=== PATIENT | male | born 1940 | race Two or more races ===

== ENCOUNTER 2017-04-17 05:49 | Emergency (ER) | payer MEDICARE, MEDICAID ==
[~2017-04-17] VITALS: Ht 167.6 cm; Wt 68.0 kg
[~2017-04-17 05:49] MED LIST: ALLO300T2 PO; BENA40TA7 PO; MULTCAP45 PO; NIFE30TA70 PO; TRAM50TA2 PO
[2017-04-17 07:26] LABS: Urine Bacteria NONE SEEN /hpf (None Seen); Urine Blood Negative /uL (Negative); Urine Hyaline Cast FEW /lpf (0 - 2); Urine Specific Gravity 1.025 (1.001-1.035); Urine WBC 1 /hpf (0 - 3)
[2017-04-17 07:40] LABS: Basophils # (auto) 0.1 uL; Basophils % (auto) 0.9 % (0.0-2.0); Eosinophils # (auto) 0.3 uL; Eosinophils % (auto) 4.5 % (0.0-7.0); Hematocrit 35.1 % (41.0-53.0); Hemoglobin 11.6 g/dL (13.5-17.5); Lymphocytes # (auto) 2.4 uL; Lymphocytes % (auto) 39.9 % (10.0-50.0); Mean Corpuscular Hemoglobin 32.4 pg (28.0-32.0); Mean Corpuscular Hgb Conc. 33.1 g/dL (32.0-36.0); Mean Corpuscular Volume 97.7 fL (80.0-100.0); Monocytes # (auto) 0.8 uL; Monocytes % (auto) 12.7 % (0.0-12.0); Neutrophils # (auto) 2.5 uL; Nucleated Red Blood Cells % 0.1 %; Platelet Count (auto) 238 10^3/uL (140-450); Red Blood Cells 3.59 10^6/uL (4.5-5.90)
[2017-04-17 07:44] LABS: Albumin 3.1 g/dL (3.4-5.0); BUN/Creatinine Ratio 31.5; Calcium 9.5 mg/dL (8.5-10.1); Potassium 3.9 mmol/L (3.5-5.1)
[2017-04-17 07:52] LABS: Bilirubin, Total 0.5 mg/dL (0.2-1.0); Total Protein 8.3 g/dL (6.4-8.2)
[2017-04-17 08:57] LABS: INR 0.96 (0.9-1.15); Prothrombin Time 10.5 sec (9.37-12.3)
[2017-04-17] MEDS ORDERED: NALBUPHINE HCL 10 MG/1ml INJECTION IV ONE (09:00)
[2017-04-17 09:04] LABS: Alcohol, Urine < 3.0 mg/dL (0-5); Amphetamine Screen, Urine NEGATIVE (NEGATIVE); Barbiturate Scree,Urine NEGATIVE (NEGATIVE); Benzodiazephine Screen, Urine NEGATIVE (NEGATIVE); Cannabinoid Screen, Urine NEGATIVE (NEGATIVE); Cocaine Screen, Urine NEGATIVE (NEGATIVE); Opiate Scree,Urine POSITIVE (NEGATIVE); Phencyclidine Screen, Urine NEGATIVE (NEGATIVE)
[2017-04-17] MEDS ORDERED: HYDR-531 PO (09:27)
[2017-04-17] MEDS ORDERED: HYD2I PO (09:27)
[2017-04-17] MEDS ORDERED: MELO1TAB73 PO (09:27)
[2017-04-17] MEDS ORDERED: LACT10SO3 PO (09:27)
[2017-04-17] MEDS ORDERED: METO25TA5 PO (09:27)
[2017-04-17] MEDS ORDERED: MET50T PO (09:27)
[2017-04-17] MEDS ORDERED: CLOP75TA41 PO (09:27)
[2017-04-17] MEDS ORDERED: DEXTLIQ70 PO (09:27)
[2017-04-17] MEDS ORDERED: ATOR20TA50 PO (09:27)
[2017-04-17] MEDS ORDERED: IPRIH INH (09:27)
[2017-04-17 14:23] VITALS: BP 118/60
== END 2017-04-17 14:56 | disposition swing bed (61) ==
LOC: EDBD 05:49 → ER 05:51
DX: S72.091A Other fracture of head and neck of right femur, initial encounter for closed fracture (principal); G89.4 Chronic pain syndrome; I10 Essential (primary) hypertension; F17.210 Nicotine dependence, cigarettes, uncomplicated; W19.XXXA Unspecified fall, initial encounter; Y93.89 Activity, other specified; Y99.8 Other external cause status; Y92.89 Other specified places as the place of occurrence of the external cause
CPT/HCPCS: 36415; 72125; 73502; 73700; 80053; 80307; 81001; 83880; 84484; 85025; 85610; 93005; 96374; 99285; J2300

== ENCOUNTER 2017-04-30 17:03 | Emergency (ER) | payer MEDICARE, MEDICAID ==
[~2017-04-30] VITALS: Ht 180.3 cm; Wt 77.1 kg
[~2017-04-30 17:03] MED LIST changes: +ATOR20TA50 PO; +CLOP75TA41 PO; +DEXTLIQ70 PO; +HYD2I PO; +HYDR-531 PO; +IPRIH INH; +LACT10SO3 PO; +MELO1TAB73 PO; +MET50T PO; +METO25TA5 PO
[2017-04-30 17:13] VITALS: BP 168/76
== END 2017-04-30 17:26 | disposition left against medical advice (07) ==
LOC: EDBD 17:03 → ER 17:03
DX: M25.551 Pain in right hip (principal); Z53.21 Procedure and treatment not carried out due to patient leaving prior to being seen by health care provider

== ENCOUNTER 2017-11-11 04:56 | Inpatient (IN) | payer MEDICARE, OTHER ==
[~2017-11-11] VITALS: Ht 165.1 cm; Wt 59.5 kg
[~2017-11-11 04:56] MED LIST changes: -ALLO300T2 PO; -ATOR20TA50 PO; -BENA40TA7 PO; -CLOP75TA41 PO; -DEXTLIQ70 PO; -HYD2I PO; -IPRIH INH; -LACT10SO3 PO; -MELO1TAB73 PO; -MET50T PO; -METO25TA5 PO; -MULTCAP45 PO; -NIFE30TA70 PO; -TRAM50TA2 PO
[2017-11-11 05:30] LABS: Urine WBC None Seen /hpf (0 - 3)
[2017-11-11 05:54] LABS: Urine Bacteria NONE SEEN /hpf (None Seen); Urine Blood Negative /uL (Negative); Urine Specific Gravity 1.011 (1.001-1.035)
[2017-11-11 07:20] LABS: Basophils # (auto) 0 uL; Basophils % (auto) 0.4 % (0.0-2.0); Eosinophils # (auto) 0.2 uL; Eosinophils % (auto) 3.5 % (0.0-7.0); Hematocrit 36.7 % (41.0-53.0); Hemoglobin 12.6 g/dL (13.5-17.5); Lymphocytes # (auto) 2.6 uL; Lymphocytes % (auto) 41.4 % (10.0-50.0); Mean Corpuscular Hemoglobin 33.1 pg (28.0-32.0); Mean Corpuscular Hgb Conc. 34.3 g/dL (32.0-36.0); Mean Corpuscular Volume 96.5 fL (80.0-100.0); Monocytes # (auto) 0.6 uL; Monocytes % (auto) 9.8 % (0.0-12.0); Neutrophils # (auto) 2.8 uL; Neutrophils % (auto) 44.9 % (37.0-80.0); Nucleated Red Blood Cells % 0.1 %; Platelet Count (auto) 217 10^3/uL (140-450); Red Cell Distribution Width 14.5 % (11.8-14.3); White Blood Cell 6.3 10^3/uL (4.4-10.8)
[2017-11-11 07:39] LABS: INR 0.93 (0.9-1.15); Partial Thromboplastin Time 23.8 sec (23.78-33.04)
[2017-11-11] MEDS ORDERED: ONDANSETRON HCL 4 MG/2 ML VIAL IV ONE (08:00)
[2017-11-11] MEDS ORDERED: MORPHINE SULF INJ 2 MG/ML SYRINGE 1ML IV ONE (08:00)
[2017-11-11 08:11] LABS: Alanine Aminotransferase 34 U/L (16-61)
[2017-11-11 08:12] LABS: Anion Gap 3 (5-15); BUN/Creatinine Ratio 16.6; Blood Urea Nitrogen 25 mg/dL (7-18); Carbon Dioxide 24 mmol/L (21-32); Chloride 106 mmol/L (98-107); GFR African American 58 mL/min; GFR Non-African American 48 mL/min; Glucose 93 mg/dL (74-106); Potassium 4.9 mmol/L (3.5-5.1); Sodium 133 mmol/L (136-145)
[2017-11-11 08:13] LABS: Albumin 3.5 g/dL (3.4-5.0); Alkaline Phosphatase 91 U/L (45-117); Aspartate Aminotransferase 30 U/L (15-37); Bilirubin, Total 0.2 mg/dL (0.2-1.0); Calcium 8.7 mg/dL (8.5-10.1); Total Protein 8.6 g/dL (6.4-8.2)
[2017-11-11] MEDS ORDERED: ACETAMINOPHEN 500 MG TAB PO ONE (09:00)
[2017-11-11] MEDS ORDERED: ZOLPIDEM TARTRATE 5 MG TAB PO PRN (10:15)
[2017-11-11] MEDS ORDERED: ACETAMINOPHEN 325 MG TAB PO PRN (10:15)
[2017-11-11] MEDS ORDERED: SULFAMETHOX W/TRIMETH(800/160MG) DS TAB PO ONE (10:15)
[2017-11-11] MEDS ORDERED: MORPHINE SULF INJ 2 MG/ML SYRINGE 1ML IV PRN (10:15)
[2017-11-11] MEDS ORDERED: NITROGLYCERIN 0.4 MG SL TAB SL PRN ×2 (10:15)
[2017-11-11] MEDS ORDERED: DEXTROSE (50%) 50ML SYRG IV PRN (10:15)
[2017-11-11] MEDS ORDERED: MORPHINE SULFATE 4 MG/ML SYR/VIAL IV PRN (10:15)
[2017-11-11] MEDS ORDERED: ALUM & MAG HYDROX-SIMETH LIQ(MAALOX) 30 ML PO ONE (10:15)
[2017-11-11] MEDS ORDERED: ONDANSETRON HCL 4 MG/2 ML VIAL IV PRN (10:15)
[2017-11-11] MEDS ORDERED: cloNIDine HCL 0.1 MG TAB PO PRN (10:15)
[2017-11-11] MEDS ORDERED: LORazepam 0.5 MG TAB PO PRN (10:15)
[2017-11-11] MEDS ORDERED: fentaNYL 25MCG/HR 25 MCG/HR PAT TD SCH (10:30)
[2017-11-11] MEDS ORDERED: CARVEDILOL 3.125 MG TAB PO ONE (10:45)
[2017-11-11] MEDS ORDERED: CLOPIDOGREL BISULFATE 75 MG TAB PO ONE (10:45)
[2017-11-11] MEDS: ASPirin 81 mg TAB PO SCH (11:09)
[2017-11-11] MEDS: ENALAPRIL MALEATE 2.5 MG TAB PO SCH ×2 (11:09→22:05)
[2017-11-11] MEDS: ACCU-CHEK COMFORT CURVE STRIP VI SCH ×3 (11:15→22:06)
[2017-11-11] MEDS: InsuLIN REG 1unit/0.01ml Soln (100units/ml) SC SCH ×3 (11:17→22:00)
[2017-11-11] MEDS ORDERED: OXY5T PO (14:01)
[2017-11-11] MEDS: SODIUM CHLOR 0.9% PF (SALINE LOCK) 10ML VIAL/SYR IV SCH ×2 (14:01→22:04)
[2017-11-11 16:00] VITALS: BP 105/57
[2017-11-11] MEDS: HYDROcodone-ACET 10/325MG TAB PO PRN ×2 (16:34→22:36)
[2017-11-11] MEDS ORDERED: MELO1TAB56 PO (18:27)
[2017-11-11] MEDS ORDERED: LORA-654 PO (18:27)
[2017-11-11] MEDS ORDERED: AMLO5TAB13 PO (18:27)
[2017-11-11] MEDS ORDERED: CLON0.1T PO (18:27)
[2017-11-11] MEDS ORDERED: NITR0.4S29 SL (18:27)
[2017-11-11] MEDS ORDERED: FENT25DI2 TD (18:27)
[2017-11-11] MEDS ORDERED: CLOP75TA41 PO (18:27)
[2017-11-11] MEDS: CARVEDILOL 3.125 MG TAB PO SCH (22:00)
[2017-11-11] MEDS: SULFAMETHOX W/TRIMETH(800/160MG) DS TAB PO SCH (22:04)
[2017-11-11] MEDS: ATORVASTATIN 20 MG TAB PO SCH (22:05)
[2017-11-11 22:27] VITALS: BP 113/59
[2017-11-12] MEDS: HYDROcodone-ACET 10/325MG TAB PO PRN ×3 (04:40→19:45)
[2017-11-12 05:01] VITALS: BP 87/53
[2017-11-12] MEDS: SODIUM CHLOR 0.9% PF (SALINE LOCK) 10ML VIAL/SYR IV SCH ×3 (06:54→22:09)
[2017-11-12] MEDS: ACCU-CHEK COMFORT CURVE STRIP VI SCH ×4 (06:54→22:10)
[2017-11-12] MEDS: InsuLIN REG 1unit/0.01ml Soln (100units/ml) SC SCH ×4 (06:55→22:00)
[2017-11-12 07:07] LABS: Basophils # (auto) 0 uL; Basophils % (auto) 0.6 % (0.0-2.0); Eosinophils # (auto) 0.2 uL; Eosinophils % (auto) 3.8 % (0.0-7.0); Hematocrit 38.9 % (41.0-53.0); Lymphocytes # (auto) 2.6 uL; Lymphocytes % (auto) 40.5 % (10.0-50.0); Mean Corpuscular Hemoglobin 32.6 pg (28.0-32.0); Mean Corpuscular Hgb Conc. 33.6 g/dL (32.0-36.0); Mean Corpuscular Volume 97.1 fL (80.0-100.0); Monocytes # (auto) 0.7 uL; Monocytes % (auto) 10.4 % (0.0-12.0); Neutrophils # (auto) 2.8 uL; Neutrophils % (auto) 44.7 % (37.0-80.0); Platelet Count (auto) 205 10^3/uL (140-450); Red Cell Distribution Width 14.7 % (11.8-14.3); White Blood Cell 6.3 10^3/uL (4.4-10.8)
[2017-11-12 07:38] LABS: Albumin 3.6 g/dL (3.4-5.0); BUN/Creatinine Ratio 13.5; Bilirubin, Total 0.3 mg/dL (0.2-1.0); Calcium 8.9 mg/dL (8.5-10.1); Magnesium 2.8 mg/dL (1.6-2.6); Potassium 4.8 mmol/L (3.5-5.1); Total Protein 8.7 g/dL (6.4-8.2)
[2017-11-12 08:00] VITALS: BP 100/60
[2017-11-12] MEDS: ENALAPRIL MALEATE 2.5 MG TAB PO SCH ×2 (10:00→22:00)
[2017-11-12] MEDS: CARVEDILOL 3.125 MG TAB PO SCH ×2 (10:00→22:00)
[2017-11-12] MEDS ORDERED: amLODIPine BESYLATE 5 MG TAB PO SCH (10:00)
[2017-11-12] MEDS: ASPirin 81 mg TAB PO SCH (10:44)
[2017-11-12] MEDS: DOCUSATE SOD 100 MG CAP PO SCH (10:44)
[2017-11-12] MEDS: SULFAMETHOX W/TRIMETH(800/160MG) DS TAB PO SCH ×2 (10:44→22:09)
[2017-11-12] MEDS: CLOPIDOGREL BISULFATE 75 MG TAB PO SCH (10:44)
[2017-11-12 12:00] VITALS: BP 146/75
[2017-11-12 16:00] VITALS: BP 91/57
[2017-11-12] MEDS ORDERED: SULF400T11 PO (18:16)
[2017-11-12 22:00] VITALS: BP 106/43
[2017-11-12] MEDS: ATORVASTATIN 20 MG TAB PO SCH (22:09)
[2017-11-13] MEDS: HYDROcodone-ACET 10/325MG TAB PO PRN ×2 (01:58→08:13)
[2017-11-13 05:24] VITALS: BP 104/53
[2017-11-13] MEDS: SODIUM CHLOR 0.9% PF (SALINE LOCK) 10ML VIAL/SYR IV SCH (06:25)
[2017-11-13] MEDS: ACCU-CHEK COMFORT CURVE STRIP VI SCH (06:25)
[2017-11-13] MEDS: InsuLIN REG 1unit/0.01ml Soln (100units/ml) SC SCH (06:25)
[2017-11-13] MEDS: SULFAMETHOX W/TRIMETH(800/160MG) DS TAB PO SCH (08:16)
[2017-11-13] MEDS: ASPirin 81 mg TAB PO SCH (08:16)
[2017-11-13] MEDS: CLOPIDOGREL BISULFATE 75 MG TAB PO SCH (08:16)
[2017-11-13] MEDS: DOCUSATE SOD 100 MG CAP PO SCH (08:16)
[2017-11-13 08:55] VITALS: BP 102/58
[2017-11-13] MEDS: CARVEDILOL 3.125 MG TAB PO SCH (10:00)
[2017-11-13] MEDS: ENALAPRIL MALEATE 2.5 MG TAB PO SCH (10:00)
[2017-11-13 12:16] VITALS: BP 110/59
== END 2017-11-13 13:04 | disposition home or self-care (01) | DRG 291 ==
LOC: EDBD 04:56 → ER 05:01 → TELE 05:02 → TELE-CENTR 12:54
PROVIDERS: ADMIT Internal Medicine; ATTEND Family Medicine
DX: I13.0 Hypertensive heart and chronic kidney disease with heart failure and stage 1 through stage 4 chronic kidney disease, or unspecified chronic kidney disease (principal); I50.43 Acute on chronic combined systolic (congestive) and diastolic (congestive) heart failure; E87.1 Hypo-osmolality and hyponatremia; R64 Cachexia; I25.10 Atherosclerotic heart disease of native coronary artery without angina pectoris; N18.3 Chronic kidney disease, stage 3 (moderate); E83.41 Hypermagnesemia; D63.8 Anemia in other chronic diseases classified elsewhere; E11.22 Type 2 diabetes mellitus with diabetic chronic kidney disease; E78.00 Pure hypercholesterolemia, unspecified; E78.5 Hyperlipidemia, unspecified; F10.10 Alcohol abuse, uncomplicated; I25.2 Old myocardial infarction; F17.210 Nicotine dependence, cigarettes, uncomplicated; Z81.8 Family history of other mental and behavioral disorders; Z82.49 Family history of ischemic heart disease and other diseases of the circulatory system; Z83.3 Family history of diabetes mellitus; Z82.61 Family history of arthritis; Z95.1 Presence of aortocoronary bypass graft; R00.1 Bradycardia, unspecified; Z68.21 Body mass index [BMI] 21.0-21.9, adult; Z95.5 Presence of coronary angioplasty implant and graft
CPT/HCPCS: 36415; 71045; 80053; 80061; 81001; 82962; 83036; 83735; 83880; 84443; 84484; 85025; 85610; 85730; 87081; 93005; 96374; 96375; J2405

== ENCOUNTER → 2017-11-28 | Outpatient (CLI) | payer MEDICARE, OTHER ==
[~2017-11-28] VITALS: Ht 180.3 cm; Wt 64.9 kg
[~2017-11-28] MED LIST changes: +ADENOSINE 54 MG in GIVE UN-DILUTED 0 ML IV ONE; +ADENOSINE 90 MG/30 ML INJ IV ONE; +AMLO5TAB13 PO; +CLON0.1T PO; +CLOP75TA41 PO; +FENT25DI2 TD; +LORA-654 PO; +MELO1TAB56 PO; +NITR0.4S29 SL; +SULF400T11 PO
== END | disposition home or self-care (01) ==
LOC: Rad HDHVI 10:05
PROVIDERS: ATTEND Internal Medicine Cardiovascular Disease
DX: Z01.810 Encounter for preprocedural cardiovascular examination (principal); I10 Essential (primary) hypertension; E78.00 Pure hypercholesterolemia, unspecified; I20.9 Angina pectoris, unspecified
CPT/HCPCS: 78452; 93005; 96374; 96375; A9500; J0153

== ENCOUNTER 2018-07-07 00:59 | Inpatient (IN) | payer MEDICARE, OTHER ==
[2018-07-07] VITALS (7 sets, daily range): BP systolic 95–122; BP diastolic 53–72
[~2018-07-07] VITALS: Ht 180.3 cm; Wt 127.7 kg
[~2018-07-07 00:59] MED LIST changes: -ADENOSINE 54 MG in GIVE UN-DILUTED 0 ML IV ONE; -ADENOSINE 90 MG/30 ML INJ IV ONE
[2018-07-07] MEDS ORDERED: SODIUM CHLORIDE 0.9% 1,000 ML IVB ONE (01:07)
[2018-07-07 01:50] LABS: Basophils # (auto) 0 uL; Basophils % (auto) 0.3 % (0.0-2.0); Eosinophils # (auto) 0 uL; Eosinophils % (auto) 0.4 % (0.0-7.0); Hematocrit 39.9 % (41.0-53.0); Hemoglobin 13.2 g/dL (13.5-17.5); Lymphocytes # (auto) 2.1 uL; Lymphocytes % (auto) 28.4 % (10.0-50.0); Mean Corpuscular Hemoglobin 31.9 pg (28.0-32.0); Mean Corpuscular Volume 96.6 fL (80.0-100.0); Monocytes # (auto) 0.4 uL; Monocytes % (auto) 5.1 % (0.0-12.0); Neutrophils # (auto) 4.9 uL; Neutrophils % (auto) 65.8 % (37.0-80.0); Nucleated Red Blood Cells % 0.1 %; Platelet Count (auto) 241 10^3/uL (140-450); Red Blood Cells 4.13 10^6/uL (4.5-5.90); Red Cell Distribution Width 14.6 % (11.8-14.3); White Blood Cell 7.5 10^3/uL (4.4-10.8)
[2018-07-07 01:59] LABS: Urine Bacteria FEW /hpf (None Seen); Urine Blood 1+ /uL (Negative); Urine Hyaline Cast FEW /lpf (0 - 2); Urine Specific Gravity 1.009 (1.001-1.035); Urine WBC 1 /hpf (0 - 3)
[2018-07-07 02:07] LABS: Albumin 3.1 g/dL (3.4-5.0); BUN/Creatinine Ratio 10.6; Calcium 9.2 mg/dL (8.5-10.1)
[2018-07-07 02:10] LABS: Potassium 2.5 mmol/L (3.5-5.1)
[2018-07-07 02:12] LABS: Bilirubin, Total 0.2 mg/dL (0.2-1.0); Total Protein 8.1 g/dL (6.4-8.2)
[2018-07-07] MEDS: POTASSIUM CHL 20MEQ/100ML 100 ML IV SCH ×3 (02:39→06:34)
[2018-07-07] MEDS ORDERED: ACETAMINOPHEN 500 MG TAB PO PRN (07:15)
[2018-07-07] MEDS ORDERED: cloNIDine HCL 0.1 MG TAB PO PRN (07:15)
[2018-07-07] MEDS ORDERED: LORazepam 0.5 MG TAB PO PRN ×2 (07:15→15:30)
[2018-07-07] MEDS ORDERED: ONDANSETRON HCL 4 MG/2 ML VIAL IV PRN (07:15)
--- NOTE | 2018-07-07 09:49 | NUR ---
MS admit from ER DILIP WANG admitted to Med-Surg after SBAR received. Patient is alert, oriented x2, name and place. Patient oriented to JABARI Sims RN, unit, room, bed, and unit policies regarding patient care and visiting hours. Patient weighed by bed scale and encouraged to call if they need something. Bed alarm turned on. All questions and concerns addressed, patient verbalized understanding.
[2018-07-07] MEDS: amLODIPine BESYLATE 5 MG TAB PO SCH (10:00)
--- NOTE | 2018-07-07 10:00 | NUR ---
Med-Rec Tried to do medication reconciliation but patient stated he can't remember the medicines he takes at home. He cannot also remember any number that we can call to clarify for home medications.
[2018-07-07] MEDS: PANTOPRAZOLE 40 MG TAB PO SCH (10:34)
[2018-07-07] MEDS: FOLIC ACID 1 MG TAB PO SCH (10:34)
[2018-07-07] MEDS: THIAMINE 100mg/ml INJ (200mg/2ml VIAL) IV SCH (10:34)
[2018-07-07] MEDS: MULTIPLE VITAMIN TAB PO SCH (10:34)
[2018-07-07] MEDS: HYDROcodone-ACET 5/325MG TAB PO PRN ×2 (11:13→15:21)
[2018-07-07] MEDS ORDERED: chlordiazePOXIDE HCL 25 MG CAP PO PRN (15:30)
[2018-07-07] MEDS ORDERED: POTASSIUM CHL 20 Meq TABLET PO ONE (15:30)
[2018-07-07] MEDS: CLOPIDOGREL BISULFATE 75 MG TAB PO SCH (16:36)
--- NOTE | 2018-07-07 16:40 | NUR ---
Urine sample for drug screen sent to the lab.
--- NOTE | 2018-07-07 16:45 | NUR ---
Paged Dr. Putnam, reported patient is asking for Pepto Bismol medication for upset stomach. MD gave an order. Will carry out order.
[2018-07-07 17:42] LABS: Amphetamine Screen, Urine NEGATIVE (NEGATIVE); Barbiturate Scree,Urine NEGATIVE (NEGATIVE); Benzodiazephine Screen, Urine NEGATIVE (NEGATIVE); Cannabinoid Screen, Urine NEGATIVE (NEGATIVE); Cocaine Screen, Urine NEGATIVE (NEGATIVE); Opiate Scree,Urine NEGATIVE (NEGATIVE); Phencyclidine Screen, Urine NEGATIVE (NEGATIVE)
--- NOTE | 2018-07-07 17:45 | NUR ---
Nasal swab sent to lab to test for MRSA.
[2018-07-07] MEDS: BISMUTH SUBSALICYLATE 262MG/15ml ORAL Susp PO PRN (17:48)
--- NOTE | 2018-07-07 19:00 | NUR ---
Closing Note Patient is resting in bed, no signs of distress. Call light within reach and bed in lowest position. Care endorsed to night RN.
--- NOTE | 2018-07-07 19:30 | NUR ---
Opening Shift Note Assumed care of patient, sleeping in bed with symmetrical chest rise and fall noted. No S/S of distress/SOB or pain noted. Bed is locked in lowest position, side rails x 2 are up, call light is within reach, and bed alarm is on.
--- NOTE | 2018-07-07 22:12 | NUR ---
SPOKE WITH ARGELIA CRUZ RE: BLOOD PRESSURE Made ARGELIA Cruz aware of patients blood pressure: 96/53, heart rate: 71, and MAP 69. Per ARGELIA Cruz continue to monitor patient. ARGELIA Cruz is okay with patients blood pressure as long as MAP is greater than 60. Will implement orders as received.
--- NOTE | 2018-07-07 23:28 | NUR ---
ROUNDS Patient is sleeping in bed with symmetrical chest rise and fall. No S/S of distress/SOB or pain noted. Bed is locked in lowest position, side rails x 2 are up, call light is within reach,and bed alarm is on.
[2018-07-08] MEDS: HYDROcodone-ACET 5/325MG TAB PO PRN ×3 (04:53→08:54)
[2018-07-08 05:00] VITALS: BP 101/55
--- NOTE | 2018-07-08 05:43 | NUR ---
PATIENT OFF UNIT TO SMOKE Patient off unit to smoke. AMA is signed and in hard chart. Patient educated regarding smoking cessation and fall precautions, patient verbalized understanding. No distress noted at time of denature. Addendum: 07/08/18 at 0544 by RENA RAMOS RN RN departure.
[2018-07-08] MEDS: BISMUTH SUBSALICYLATE 262MG/15ml ORAL Susp PO PRN ×2 (06:34→09:50)
--- NOTE | 2018-07-08 07:20 | NUR ---
Opening Shift Note Assumed care of patient, awake and alert oriented x4 today. No S/S of distress/SOB or pain. Instructed on POC and to call for assist PRN, will continue to monitor for changes Q1hr and PRN.
[2018-07-08 07:47] LABS: Basophils # (auto) 0 uL; Basophils % (auto) 0.6 % (0.0-2.0); Eosinophils # (auto) 0.2 uL; Eosinophils % (auto) 2.1 % (0.0-7.0); Hematocrit 34.3 % (41.0-53.0); Hemoglobin 11.5 g/dL (13.5-17.5); Lymphocytes # (auto) 1.8 uL; Lymphocytes % (auto) 25.1 % (10.0-50.0); Mean Corpuscular Hemoglobin 31.9 pg (28.0-32.0); Mean Corpuscular Hgb Conc. 33.6 g/dL (32.0-36.0); Mean Corpuscular Volume 94.9 fL (80.0-100.0); Monocytes # (auto) 0.6 uL; Monocytes % (auto) 8.8 % (0.0-12.0); Neutrophils # (auto) 4.5 uL; Neutrophils % (auto) 63.4 % (37.0-80.0); Platelet Count (auto) 204 10^3/uL (140-450); Red Blood Cells 3.61 10^6/uL (4.5-5.90); Red Cell Distribution Width 14.5 % (11.8-14.3); White Blood Cell 7.2 10^3/uL (4.4-10.8)
[2018-07-08 08:02] LABS: Potassium 3.2 mmol/L (3.5-5.1)
[2018-07-08 08:08] VITALS: BP 117/72
[2018-07-08 08:10] LABS: Albumin 2.8 g/dL (3.4-5.0); Bilirubin, Total 0.4 mg/dL (0.2-1.0); Calcium 8.4 mg/dL (8.5-10.1); Magnesium 2.1 mg/dL (1.6-2.6); Total Protein 6.9 g/dL (6.4-8.2)
--- NOTE | 2018-07-08 08:30 | NUR ---
Informed PT Nicanor of patient's pending physical therapy evaluation.
[2018-07-08] MEDS: PANTOPRAZOLE 40 MG TAB PO SCH (09:52)
[2018-07-08] MEDS: THIAMINE 100mg/ml INJ (200mg/2ml VIAL) IV SCH (09:52)
[2018-07-08] MEDS: MULTIPLE VITAMIN TAB PO SCH (09:52)
[2018-07-08] MEDS: FOLIC ACID 1 MG TAB PO SCH (09:52)
[2018-07-08] MEDS: CLOPIDOGREL BISULFATE 75 MG TAB PO SCH (09:52)
[2018-07-08] MEDS: amLODIPine BESYLATE 5 MG TAB PO SCH (09:54)
--- NOTE | 2018-07-08 10:22 | NUR ---
Page Dr. Putnam as patient wanted to leave AMA, also informed MD of Potassium 3.2 this morning. MD gave an order of Potassium 40 mEq po. Will carry out order.
[2018-07-08] MEDS ORDERED: POTASSIUM CHL 20 Meq TABLET PO ONE ×2 (10:30)
--- NOTE | 2018-07-08 10:45 | NUR ---
AMA Note DILIP WANG states they want to leave the hospital Against Medical Advice (AMA) and without being seen by hospitalist Dr. Putnam. Patient encouraged to stay for further treatment/stabilization. Dr. Putnam notified of patient's wishes. Patient advised of the risks of leaving AMA. Patient verbalized understanding. Patient encouraged to return to the ER if symptoms do not improve or worsen.
--- NOTE | 2018-07-08 11:25 | NUR ---
Pt left AMA before completing SS consult
== END 2018-07-08 10:45 | disposition left against medical advice (07) | DRG 640 ==
LOC: EDBD 00:59 → ER 00:59 → TELE 07:11 → EAST 09:49
PROVIDERS: ADMIT Nurse Practitioner Family; ATTEND Internal Medicine
DX: E87.6 Hypokalemia (principal); G92 Toxic encephalopathy; E44.1 Mild protein-calorie malnutrition; I50.42 Chronic combined systolic (congestive) and diastolic (congestive) heart failure; F10.129 Alcohol abuse with intoxication, unspecified; E11.9 Type 2 diabetes mellitus without complications; F17.210 Nicotine dependence, cigarettes, uncomplicated; Y90.0 Blood alcohol level of less than 20 mg/100 ml; G89.4 Chronic pain syndrome; I11.0 Hypertensive heart disease with heart failure; I25.10 Atherosclerotic heart disease of native coronary artery without angina pectoris; Z79.02 Long term (current) use of antithrombotics/antiplatelets; Z81.8 Family history of other mental and behavioral disorders; Z82.49 Family history of ischemic heart disease and other diseases of the circulatory system; Z95.5 Presence of coronary angioplasty implant and graft; I25.2 Old myocardial infarction; Z82.61 Family history of arthritis; Z68.39 Body mass index [BMI] 39.0-39.9, adult; Z79.84 Long term (current) use of oral hypoglycemic drugs
CPT/HCPCS: 36415; 71045; 80053; 80061; 80307; 80320; 81001; 83036; 83735; 84132; 85025; 87081; 93005; 94761; 96361; 96374; G0378; J3480

== ENCOUNTER 2019-10-02 14:01 | Emergency (ER) | payer MEDICARE, OTHER ==
[~2019-10-02 14:01] MED LIST changes: -AMLO5TAB13 PO; +AMLO5TAB15 PO; -LORA-654 PO; +LORA0.5T20 PO
[2019-10-02 14:28] VITALS: BP 92/54
[2019-10-02 15:03] LABS: Basophils # (auto) 0 10 ^3/uL (0-0.2); Basophils % (auto) 0.5 % (0.0-2.0); Eosinophils # (auto) 0.1 10 ^3/uL (0-0.8); Eosinophils % (auto) 1.6 % (0.0-7.0); Hematocrit 38.7 % (41.0-53.0); Hemoglobin 12.6 g/dL (13.5-17.5); Lymphocytes # (auto) 1.9 10 ^3/uL (0.4-5.4); Lymphocytes % (auto) 25.4 % (10.0-50.0); Mean Corpuscular Hemoglobin 32.9 pg (28.0-32.0); Mean Corpuscular Hgb Conc. 32.5 g/dL (32.0-36.0); Mean Corpuscular Volume 101.4 fL (80.0-100.0); Monocytes # (auto) 0.6 10 ^3/uL (0-1.3); Monocytes % (auto) 7.7 % (0.0-12.0); Neutrophils # (auto) 4.7 10 ^3/uL (1.6-8.6); Neutrophils % (auto) 64.8 % (37.0-80.0); Nucleated Red Blood Cells % 0.1 %; Platelet Count (auto) 226 10^3/uL (140-450); Red Blood Cells 3.82 10^6/uL (4.5-5.90); Red Cell Distribution Width 14.4 % (11.8-14.3); White Blood Cell 7.3 10^3/uL (4.4-10.8)
[2019-10-02 15:15] LABS: Albumin 2.7 g/dL (3.4-5.0); Calcium 7.7 mg/dL (8.5-10.1); Potassium 4.1 mmol/L (3.5-5.1)
[2019-10-02 15:17] LABS: BUN/Creatinine Ratio 22.2
[2019-10-02 15:31] LABS: Bilirubin, Total 0.3 mg/dL (0.2-1.0); Total Protein 6.8 g/dL (6.4-8.2)
== END 2019-10-02 15:07 | disposition left against medical advice (07) ==
LOC: EDBD 14:01 → ER 14:01
DX: I95.9 Hypotension, unspecified (principal); Z53.21 Procedure and treatment not carried out due to patient leaving prior to being seen by health care provider
CPT/HCPCS: 36415; 80053; 80320; 84484; 85025

== ENCOUNTER 2019-11-23 16:43 | Emergency (ER) | payer MEDICARE, OTHER ==
[~2019-11-23] VITALS: Ht 162.6 cm; Wt 63.5 kg
[2019-11-23] MEDS ORDERED: ACETAMINOPHEN 325 MG TAB PO ONE (18:00)
[2019-11-23] MEDS ORDERED: ACETAMINOPHEN 650 mg PER 20 mL UD PO ONE (18:15)
[2019-11-24 06:41] VITALS: BP 115/63
== END 2019-11-24 08:45 | disposition home or self-care (01) ==
LOC: ER 16:43 → EDBD 16:43 → ER 11-24 08:45
DX: G89.29 Other chronic pain (principal); M25.551 Pain in right hip; M25.552 Pain in left hip; R51 Headache; M54.2 Cervicalgia; R42 Dizziness and giddiness; I11.0 Hypertensive heart disease with heart failure; I50.9 Heart failure, unspecified; I25.10 Atherosclerotic heart disease of native coronary artery without angina pectoris; I25.2 Old myocardial infarction; E11.9 Type 2 diabetes mellitus without complications; F17.210 Nicotine dependence, cigarettes, uncomplicated; Z98.61 Coronary angioplasty status; Z79.899 Other long term (current) drug therapy; W18.39XA Other fall on same level, initial encounter; Y93.89 Activity, other specified; Y92.89 Other specified places as the place of occurrence of the external cause; Y99.8 Other external cause status
CPT/HCPCS: 70450; 72125; 72192